=== PATIENT | male | born 1955 | race Caucasian/White ===

== ENCOUNTER 2020-07-10 09:01 | Emergency (ER) | payer BC ==
[~2020-07-10] VITALS: Ht 180.3 cm; Wt 104.5 kg
[2020-07-10 09:06] VITALS: TEMP 97.2
[2020-07-10 09:44] LABS: COLLECTION METHOD IN
[2020-07-10 10:18] LABS: PH 6 (5-8); SQUAMOUS EPITHELIAL None Seen /hpf; URINE APPEARANCE Clear; URINE BACTERIA None Seen /hpf; URINE BILIRUBIN Negative (NEGATIVE); URINE BLOOD Negative (NEGATIVE); URINE COLOR Yellow; URINE GLUCOSE Negative (NEGATIVE); URINE KETONE Negative (NEGATIVE); URINE LEUKOCYTE ESTERASE Negative (NEGATIVE); URINE NITRATE Negative (NEGATIVE); URINE PROTEIN(semi-quant) Negative (NEGATIVE); URINE RBC 0-2 /hpf; URINE UROBILINOGEN Negative (NEGATIVE)
[2020-07-10 10:39] VITALS: BP 132/80; PULSE 88
== END 2020-07-10 10:49 | disposition home or self-care (01) ==
LOC: COL.ER 09:01
PROVIDERS: Emergency Medicine
DX: N40.0 Benign prostatic hyperplasia without lower urinary tract symptoms (principal)

== ENCOUNTER 2020-10-07 06:19 | Day surgery (SDC) | payer BC ==
[~2020-10-07] VITALS: Ht 180.3 cm; Wt 105.0 kg
[2020-10-07] MEDS ORDERED: FLOMAX 0.40.4 MG/CAP PO (06:42)
[2020-10-07] MEDS ORDERED: ASPIRIN 81M81 MG/TA2 PO (06:42)
[2020-10-07 06:47] VITALS: BP 128/88; PULSE 95; TEMP 98.1
[2020-10-07 08:00] VITALS: BP 115/83; PULSE 78
--- NOTE | 2020-10-07 08:00 | NUR ---
Patient brought back to [facility] via cart. Ambulated to chair without difficulty. Denies pain or nausea, vital signs stable. Report recieved from Gisela LEE. Patient requests muffin and juice. Call finch within reach, will continue to monitor.
[2020-10-07 08:15] VITALS: BP 113/87; PULSE 77
--- NOTE | 2020-10-07 08:15 | NUR ---
Patient tolerating food and drink without difficulty. Mariia would like to go home. MD at bedside to explain results. to pick patient up at front door. Will continue to monitor.
[2020-10-07 08:30] VITALS: BP 118/78; PULSE 76
--- NOTE | 2020-10-07 08:30 | NUR ---
Patient states he feels well and is ready to go home. IV removed, intact. Discharge instructions reviewed all questions answered.
--- NOTE | 2020-10-07 08:35 | NUR ---
Patient dressed and ready to go, all belongings in hand. Brought down to lobby via wheel chair. at front door to drive patient home.
== END 2020-10-07 08:35 | disposition home or self-care (01) ==
LOC: SDCO 06:19
DX: R19.4 Change in bowel habit (principal); R19.7 Diarrhea, unspecified; K64.1 Second degree hemorrhoids; M10.9 Gout, unspecified; Z20.822 Contact with and (suspected) exposure to COVID-19; Z86.010 Personal history of colon polyps
CPT/HCPCS: J2704; J3010; J7120